=== PATIENT | female | born 1945 | race Caucasian/White ===

== ENCOUNTER 2021-06-13 09:50 | Observation (INO) | payer MEDICARE ==
[~2021-06-13] VITALS: Ht 172.7 cm; Wt 99.7 kg
[2021-06-13] MEDS ORDERED: AMIODARONE HCL100 M3 PO (10:13)
[2021-06-13] MEDS ORDERED: ACET325 PO (10:13)
[2021-06-13] MEDS ORDERED: ATOR10 PO (10:15)
[2021-06-13] MEDS ORDERED: CINA30 PO (10:16)
[2021-06-13] MEDS ORDERED: CARV3.125 PO (10:16)
[2021-06-13] MEDS ORDERED: FURO20 PO (10:16)
[2021-06-13 11:09] LABS: Hematocrit 33.3 % (33.0-51.0); Hemoglobin 9.9 g/dL (11.5-16.0); Mean Corpuscular HGB 29.6 pg (26.0-34.0); Mean Corpuscular HGB Conc 29.7 g/dL (31.5-36.5); Mean Corpuscular Volume 100 fL (80-100); Mean Platelet Volume 8.7 fL (9.1-12.4); Platelet Count 187 K/mm3 (150-400); RDW Coefficient Variation 17.3 % (11.7-14.2); RDW Standard Deviation 63.7 fL (35.1-46.3); Red Blood Cell Count 3.34 M/mm3 (3.80-5.20); White Blood Cell Count 7.89 K/mm3 (4.00-11.30)
[2021-06-13 11:12] LABS: Source, Urine Foley catheter
[2021-06-13 11:15] LABS: Bilirubin, Urine Neg (Neg); Blood, Urine 5+ (Neg); Glucose Qualitative, Urine Neg (Neg); Ketones, Urine Neg (Neg); Leukocyte Esterase, Urine 3+ (Neg); Nitrite, Urine Neg (Neg); Protein, Urine 2+ (Neg); Urobilinogen, Urine NORM (Normal)
[2021-06-13 11:22] LABS: Color, Urine Brown (P-Yellow)
[2021-06-13 11:23] LABS: Appearance, Urine Hazy (Clear); Bacteria Few /hpf; Red Blood Cells, Urine 50-100 /hpf (0-2); Squamous Epithelial Cells Rare /hpf (Few); White Blood Cells, Urine 25-50 /hpf (0-5)
[2021-06-13 11:25] LABS: Renal Epithelial Few /hpf (0-Rare); Yeast/Fungi Urine Not Seen /hpf
[2021-06-13 11:28] LABS: Albumin, Blood 2.3 g/dL (3.4-5.0); Albumin/Globulin Ratio 0.5 (0.8-1.8); Bilirubin, Total 0.2 mg/dL (0.1-1.0); Bun/Creatinine Ratio 30.7 (12.0-20.0); Calcium, Blood 10.7 mg/dL (8.5-10.1); Creatinine, Blood 0.98 mg/dL (0.40-1.00); Globulin, Blood 4.2 g/dL (2.2-4.0); Potassium, Blood 4.3 mmol/L (3.5-5.5); Total Protein, Blood 6.5 g/dL (6.4-8.2)
[2021-06-13 11:32] LABS: BASOPHILS PERCENT MAN 0 % (0-2); EOSINOPHILS PERCENT MAN 0 % (0-6); LYMPHOCYTES ABSOLUTE MAN 0.86 K/mm3 (0.84-5.20); LYMPHOCYTES PERCENT MAN 11 % (21-46); METAMYELOCYTE ABSOLUTE MAN 0.15 K/mm3 (0.00-0.00); METAMYELOCYTE PERCENT MAN 2 % (0-0); MONOCYTES ABSOLUTE MAN 0.86 K/mm3 (0.16-1.47); MONOCYTES PERCENT MAN 11 % (4-13); MYELOCYTE ABSOLUTE MAN 0.07 K/mm3 (0.00-0.00); MYELOCYTE PERCENT MAN 1 % (0-0); NEUTROPHILS ABSOLUTE MAN 5.91 K/mm3 (1.96-9.15); SEG NEUTROPHILS PERCENT MAN 75 % (41-73); TOTAL CELLS COUNTED 100
--- NOTE | 2021-06-14 05:25 | NUR ---
Received patient from ER today, admitted for Discharge planning issue. Patient Alert and oriented, breathing unlabored. She is on 2L O2 via N/C. She is a two person assist, she has a chronic hager cath draining per gravity clear yellow urine. She also have a Nephrostomy tube placement on the right side. She is pleasant and cooperative to care. Bed side in low position, call light within reach. We will continue to monitor patient for any acute changes.
--- NOTE | 2021-06-14 18:29 | NUR ---
SHIFT SUMMARY PT IS ALERT, ORIENTED, EXTREMELY HARD OF HEARING AND VISION LOSS MAKING COMMUNICATION WITH PT MORE DIFFICULT. PT ABLE TO EXPRESS NEEDS, USE CALL LIGHT APPROPRIATELY AND FOLLOWS COMMANDS. PT REMAINED ON 2L OF O2 TODAY TO KEEP SPO2 >92%. COURSE LUNGS SOUNDS WITH PRODUCTIVE COUGH. IN DISCUSSION WITH PT'S FAMILY, IT WAS LEARNED THAT PT USES A CPAP AT [facility], BUT DOESN'T HAVE IT AVAILABLE ANYMORE. ORDERS RECEIVED FOR CPAP AND RT NOTIFIED OF ORDERS. PT HAS CHRONIC RAMOS TO GRAVITY DRAINAGE WITH AN APPROPRIATE AMOUNT OF YELLOW CLEAR URINE. PT HAS A R NEPHROSTOMY THAT HAD SOME SMALL CLOTS AND RED TINGED URINE OUTPUT. FAMILY REPORTS THEY ARE UNABLE TO CARE FOR PT, BUT PT WAS BROUGHT UP FROM THE FAMILY MEMBER IN [place] THAT BECAME [place] THEMSELVES AND NO LONGER WAS ABLE TO PROVIDE CARE FOR PT. SO PT WAS BROUGHT UP TO [place] TO BE CLOSER TO AVAILABLE FAMILY. VITALS HAVE REMAINED STABLE.
--- NOTE | 2021-06-15 16:04 | NUR ---
DAY SHIFT SUMMARY 76 YR OLD PT ADMITTED FOR DISCHARGE PLANNING. MEPILEX TO SACRUM, PT IS DEAF AND PARTIALLY BLIND. PT HAS A CHRONIC RAMOS AND RT NEPHROSTOMY TUBE. 2L O2 NC IN ROOM. PT IS ALERT AND COOPERATIVE WITH CARE. NO ACUTE CHANGES WITH PT THIS SHIFT. FAMILY AT BEDSIDE. WAITING PLACEMENT TO SNF. CALL LIGHT WITHIN REACH.
--- NOTE | 2021-06-16 16:48 | NUR ---
DAY SHIFT SUMMARY 76 YR OLD FEMALE WAITIING PLACEMENT. CALL LIGHT WITHIN REACH AND ABLE TO CALL APPROPRIATELY. A/O X3-4, DEAF AND PARTIALLY BLIND. 2 ASSIST WITH AMBULATION, BED BOUND, CHRONIC RAMOS PATENT/INTACT AND DRAINING VIA GRAVITY. NO ACUTE CHANGES THIS SHIFT.
--- NOTE | 2021-06-17 06:30 | NUR ---
PM SHIFT SUMMARY PATIENT IS VERY HARD OF HEARING; ALMOST TOTALLY DEAF. SHE IS ALSO PARTIALLY BLOND. COMMUNICATED WITH HER VIA WHITE BOARD AT BEDSIDE. SHE HAD NO COMPLAINTS DURING THE SHIFT. HER MEPILEX OVER HER SACRAL WOUND WAS CHANGED. 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 WORE HER CPAP AT NIGHT. SHE HAS A CHRONIC RAMOS, WELL A NEPHROSTOMY TUBE.HER FAMILY WANTED HER PLACED HERE, BUT SHE IS UNABLE TO BE PLACED SHE IS NOT AN [place] RESIDENT. PLAN IS TO DC HER TO A FRIEND'S HOUSE WITH HOME EQUIPMENT.
--- NOTE | 2021-06-17 17:55 | NUR ---
SHIFT SUMMARY PT IS A&O, BUT VERY [place] AND DIFFICULT TO COMMUNICATE WITH. WHITE BOARD USED NEEDED. PT IS VERY WEAK AND DECONDITIONED. CHRONIC RAMOS PATENT AND DRAINING CL YELLOW. R NEPHROSTOMY TUBE PATENT AND DRAINING LIGHT PINK/CHEN. SACRAL WOUND DRSG CHANGED THIS AM PRIOR TO START OF SHIFT. PER REPORT, PT TO D/C TO FRIENDS HOUSE WITH NEEDED EQUIPMENT FOR CARE. HOME O2 EVAL DONE. PT BIOX WNL'S ON RA WHILE AWAKE; SAT'S DROP TO UPPER 80'S WHEN ALSEEP, PER RT. PT IS VERY PLEASANT AND CO-OP. ABLE TO MAKE NEEDS KNOWN. REQUESTS TO BE REPOSITIONED. NO C/O PAIN. DENIES FURTHER NEEDS AT THIS TIME. CALL LT IN REACH.
--- NOTE | 2021-06-18 06:16 | NUR ---
PM SHIFT SUMMARY PATIENT HAD NO COMPLAINTS DURING SHIFT. SHE WORE HER CPAP AT NIGHT WITH 2L O2. SHE HAD AN EASIER TIME READING LIPS TODAY, i ONLY HAD TO USE THE WHITE BOARD TWICE. SHE HAD 1125ML URINE OUTPUT IN RAMOS, LIGHT YELLOW IN COLOR. HER NEPH TUBE HAD 600ML OUTPUT. PER NOTES, SHE MAY HAVE A HOME 02 EVAL IF SHE WANTS HOME 02. SHE WILL BE DC'ING TO A FRIEND'S HOUSE [place] WITH HOME HEALTH. POSSIBLE DC TODAY.
[2021-06-18] MEDS ORDERED: AIRDUO RESPICL1 EAC4 INH (11:31)
[2021-06-18] MEDS ORDERED: ALBU90OI6 INH (11:31)
--- NOTE | 2021-06-18 12:05 | NUR ---
PT AWAKE AT START OF SHIFT, HOPING TO GO HOME TODAY. P/T IN TO WORK WITH PT. P/T ABLE TO GET PT PARTIALLY TO [employer] AND WORK LE'S. PT IS VERY WEAK AND DECONDITIONED AND UNABLE TO MOVE MUCH AT ALL ON HER OWN. PT IS ALSO VERY HEAVY AND DIFFICULT TO MOVE AROUND IN BED. DR BALDWIN IN TO SEE PT AND DISCUSS PLAN OF CARE. D/C ORDERS PLACED. [employer] CHIEF ENGINEER ARRANGING TRANSPORTATION. PT TO BE PICKED UP FOR HOME BY [facility]AN AT 12:30. PT IS EXCITED AND TEARFUL TO BE GOING HOME. REQUESTED TYLENOL FOR COMFORT IN MOVING AND TRANSPORTING. PT REPORTED IT EFFECTIVE. DENIES FURTHER NEEDS AT THIS TIME. CALL LT IN REACH.
== END 2021-06-18 13:47 | disposition home or self-care (01) ==
LOC: ER 09:50 → ERHOLD 09:51 → MEDS 21:40 → ENPENDDIS 06-18 10:07 → MEDS 06-18 13:47
PROVIDERS: Emergency Medicine; ADMIT Internal Medicine
DX: R62.7 Adult failure to thrive (principal); R53.81 Other malaise; D63.8 Anemia in other chronic diseases classified elsewhere; E83.52 Hypercalcemia; J44.9 Chronic obstructive pulmonary disease, unspecified; Z93.6 Other artificial openings of urinary tract status; R82.79 Other abnormal findings on microbiological examination of urine; E83.51 Hypocalcemia; E66.01 Morbid (severe) obesity due to excess calories; Z68.33 Body mass index [BMI] 33.0-33.9, adult; Z87.442 Personal history of urinary calculi; Z85.3 Personal history of malignant neoplasm of breast; Z79.899 Other long term (current) drug therapy
CPT/HCPCS: 36415; 51702; 80053; 81001; 85025; 87077; 87086; 87186; 94640; 94660; 94664; 94760; 94762; 97110; 97162; 97530; 99285; A9270; G0378; J1644

== ENCOUNTER 2021-06-25 10:32 | Emergency (ER) | payer MEDICARE ==
[~2021-06-25] VITALS: Ht 165.1 cm; Wt 90.7 kg
[~2021-06-25 10:32] MED LIST: ACET325 PO; AIRDUO RESPICL1 EAC4 INH; ALBU90OI6 INH; AMIODARONE HCL100 M3 PO; ATOR10 PO; CARV3.125 PO; CINA30 PO; FURO20 PO
[2021-06-25 13:11] LABS: Source, Urine Foley catheter
[2021-06-25 13:22] LABS: Appearance, Urine Turbid (Clear); Bilirubin, Urine Neg (Neg); Blood, Urine 4+ (Neg); Color, Urine Yellow (P-Yellow); Glucose Qualitative, Urine Neg (Neg); Ketones, Urine Neg (Neg); Leukocyte Esterase, Urine 3+ (Neg); Nitrite, Urine Pos (Neg); Protein, Urine 3+ (Neg); Urobilinogen, Urine NORM (Normal)
[2021-06-25 13:25] LABS: Red Blood Cells, Urine TNTC /hpf (0-2); Squamous Epithelial Cells Rare /hpf (Few); White Blood Cells, Urine TNTC /hpf (0-5)
[2021-06-25 13:26] LABS: Bacteria Many /hpf
[2021-06-25] MEDS ORDERED: CIPR500 PO (13:55)
== END 2021-06-25 16:05 | disposition home or self-care (01) ==
LOC: ER 10:32
PROVIDERS: Student in an Organized Health Care Education/Training Program
DX: T83.031A Leakage of indwelling urethral catheter, initial encounter (principal); N39.0 Urinary tract infection, site not specified; Z79.899 Other long term (current) drug therapy
CPT/HCPCS: 36415; 51702; 81001; 87086; 96365; 99283-25; J0744

== ENCOUNTER 2021-07-01 13:02 | Emergency (ER) | payer MEDICARE ==
[~2021-07-01] VITALS: Ht 172.7 cm; Wt 108.9 kg
[~2021-07-01 13:02] MED LIST changes: +CIPR500 PO
[2021-07-02] MEDS ORDERED: MIRALAX17 GM PO (19:00)
[2021-07-07] MEDS ORDERED: Levaquin750 MG PO (10:03)
[2021-07-26] MEDS ORDERED: SULTRIDS PO (16:46)
[2021-07-26] MEDS ORDERED: CEPH500 PO (16:46)
== END 2021-07-01 14:31 | disposition home or self-care (01) ==
LOC: ER 13:02
DX: N39.0 Urinary tract infection, site not specified (principal); R62.7 Adult failure to thrive; Z79.899 Other long term (current) drug therapy; Z85.3 Personal history of malignant neoplasm of breast; I50.9 Heart failure, unspecified; J44.9 Chronic obstructive pulmonary disease, unspecified
CPT/HCPCS: 99283

== ENCOUNTER 2021-07-02 14:29 | Emergency (ER) | payer MEDICARE ==
[~2021-07-02] VITALS: Ht 162.6 cm; Wt 81.7 kg
[2021-07-02 15:51] LABS: BASOPHILS ABSOLUTE AUTO 0.03 K/mm3 (0.00-0.23); BASOPHILS PERCENT AUTO 1 % (0-2); EOSINOPHILS ABSOLUTE AUTO 0.05 K/mm3 (0.00-0.68); EOSINOPHILS PERCENT AUTO 1 % (0-6); Hematocrit 38.1 % (33.0-51.0); Hemoglobin 11.5 g/dL (11.5-16.0); IMMATURE GRAN ABSOLUTE AUTO 0.21 K/mm3 (0.00-0.10); IMMATURE GRAN PERCENT AUTO 3 % (0-1); LYMPHOCYTES ABSOLUTE AUTO 2.03 K/mm3 (0.84-5.20); LYMPHOCYTES PERCENT AUTO 32 % (21-46); MONOCYTES ABSOLUTE AUTO 0.79 K/mm3 (0.16-1.47); MONOCYTES PERCENT AUTO 12 % (4-13); Mean Corpuscular HGB 29.6 pg (26.0-34.0); Mean Corpuscular HGB Conc 30.2 g/dL (31.5-36.5); Mean Corpuscular Volume 98 fL (80-100); Mean Platelet Volume 9.7 fL (9.1-12.4); NEUTROPHILS ABSOLUTE AUTO 3.28 K/mm3 (1.96-9.15); NEUTROPHILS PERCENT AUTO 51 % (41-73); Platelet Count 124 K/mm3 (150-400); RDW Coefficient Variation 17.3 % (11.7-14.2); RDW Standard Deviation 63.3 fL (35.1-46.3); Red Blood Cell Count 3.89 M/mm3 (3.80-5.20); White Blood Cell Count 6.39 K/mm3 (4.00-11.30)
[2021-07-02 16:11] LABS: Albumin, Blood 2.4 g/dL (3.4-5.0); Albumin/Globulin Ratio 0.6 (0.8-1.8); Bilirubin, Total 0.4 mg/dL (0.1-1.0); Bun/Creatinine Ratio 19.7 (12.0-20.0); Calcium, Blood 11.4 mg/dL (8.5-10.1); Creatinine, Blood 1.32 mg/dL (0.40-1.00); Globulin, Blood 4.1 g/dL (2.2-4.0); Total Protein, Blood 6.5 g/dL (6.4-8.2)
[2021-07-02] MEDS ORDERED: MIRALAX17 GM PO (19:00)
[2021-07-07] MEDS ORDERED: Levaquin750 MG PO (10:03)
[2021-07-26] MEDS ORDERED: CEPH500 PO (16:46)
[2021-07-26] MEDS ORDERED: SULTRIDS PO (16:46)
== END 2021-07-02 21:38 | disposition home or self-care (01) ==
LOC: ER 14:29
PROVIDERS: Emergency Medicine
DX: K59.00 Constipation, unspecified (principal); E27.8 Other specified disorders of adrenal gland; Z79.899 Other long term (current) drug therapy; I50.9 Heart failure, unspecified; I11.0 Hypertensive heart disease with heart failure; Z85.3 Personal history of malignant neoplasm of breast; J44.9 Chronic obstructive pulmonary disease, unspecified
CPT/HCPCS: 36415; 74177; 80053; 83690; 85025; 99285-25; Q9967

== ENCOUNTER 2021-07-15 09:28 | Emergency (ER) | payer MEDICARE ==
[~2021-07-15] VITALS: Ht 165.1 cm; Wt 90.7 kg
[~2021-07-15 09:28] MED LIST changes: +Levaquin750 MG PO; +MIRALAX17 GM PO
[2021-07-15] MEDS ORDERED: FLUTICASONE-SA1 EA12 IH (09:51)
[2021-07-15 10:57] LABS: BASOPHILS ABSOLUTE AUTO 0.03 K/mm3 (0.00-0.23); BASOPHILS PERCENT AUTO 1 % (0-2); EOSINOPHILS ABSOLUTE AUTO 0.07 K/mm3 (0.00-0.68); EOSINOPHILS PERCENT AUTO 1 % (0-6); Hematocrit 38.1 % (33.0-51.0); Hemoglobin 11.5 g/dL (11.5-16.0); IMMATURE GRAN ABSOLUTE AUTO 0.21 K/mm3 (0.00-0.10); IMMATURE GRAN PERCENT AUTO 4 % (0-1); LYMPHOCYTES ABSOLUTE AUTO 1.73 K/mm3 (0.84-5.20); LYMPHOCYTES PERCENT AUTO 33 % (21-46); MONOCYTES ABSOLUTE AUTO 0.64 K/mm3 (0.16-1.47); MONOCYTES PERCENT AUTO 12 % (4-13); Mean Corpuscular HGB 29.3 pg (26.0-34.0); Mean Corpuscular HGB Conc 30.2 g/dL (31.5-36.5); Mean Corpuscular Volume 97 fL (80-100); Mean Platelet Volume 9.7 fL (9.1-12.4); NEUTROPHILS ABSOLUTE AUTO 2.58 K/mm3 (1.96-9.15); NEUTROPHILS PERCENT AUTO 49 % (41-73); Platelet Count 137 K/mm3 (150-400); RDW Coefficient Variation 17.8 % (11.7-14.2); RDW Standard Deviation 63.8 fL (35.1-46.3); Red Blood Cell Count 3.93 M/mm3 (3.80-5.20); White Blood Cell Count 5.26 K/mm3 (4.00-11.30)
[2021-07-15 11:05] LABS: Albumin, Blood 2.5 g/dL (3.4-5.0); Albumin/Globulin Ratio 0.7 (0.8-1.8); Bilirubin, Total 0.4 mg/dL (0.1-1.0); Bun/Creatinine Ratio 14.2 (12.0-20.0); Calcium, Blood 11.7 mg/dL (8.5-10.1); Creatinine, Blood 1.27 mg/dL (0.40-1.00); Globulin, Blood 3.7 g/dL (2.2-4.0); Potassium, Blood 3.7 mmol/L (3.5-5.5); Total Protein, Blood 6.2 g/dL (6.4-8.2)
[2021-07-15 11:24] LABS: International Normalized Ratio 1.09; Prothrombin Time Results 11.4 Sec (9.7-11.5)
[2021-07-15 12:10] LABS: Source, Urine Foley catheter
[2021-07-15 12:15] LABS: Bilirubin, Urine Neg (Neg); Blood, Urine 5+ (Neg); Glucose Qualitative, Urine Neg (Neg); Ketones, Urine Neg (Neg); Leukocyte Esterase, Urine 3+ (Neg); Nitrite, Urine Pos (Neg); Protein, Urine 3+ (Neg); Specific Gravity, Urine 1.015 (1.003-1.022); Urobilinogen, Urine NORM (Normal)
[2021-07-15 12:22] LABS: Appearance, Urine Hazy (Clear); Color, Urine Yellow (P-Yellow)
[2021-07-15 12:24] LABS: Bacteria Mod /hpf; Red Blood Cells, Urine TNTC /hpf (0-2); Squamous Epithelial Cells Few /hpf (Few); Transitional Epithelial Cells Few /hpf (0-Rare); White Blood Cells, Urine TNTC /hpf (0-5)
[2021-07-15] MEDS ORDERED: OMEP20ER PO (13:42)
[2021-07-15] MEDS ORDERED: ONDA4 PO (13:42)
== END 2021-07-15 15:45 | disposition home or self-care (01) ==
LOC: ER 09:28
PROVIDERS: Emergency Medicine
DX: K29.70 Gastritis, unspecified, without bleeding (principal); I11.0 Hypertensive heart disease with heart failure; I50.9 Heart failure, unspecified; Z85.3 Personal history of malignant neoplasm of breast; Z79.899 Other long term (current) drug therapy
CPT/HCPCS: 36415; 80053; 81001; 82272; 85025; 85610; 85730; 87077; 87086; 87186; 93005; 93010; 96374; 99284-25; C9113; J7030